=== PATIENT | male | born 1975 | race African-American/Black ===

== ENCOUNTER 2023-05-05 02:42 | Inpatient (IN) | payer OTHER ==
[2023-05-05] MEDS ORDERED: INSULIN REGULAR IN 0.9 % NACL 100 UNITS/100 ML BAG ONE (03:09)
[2023-05-05 03:33] LABS: #Basophils 0.1 thou/uL (0.0-0.2); #Eosinphils 0.2 thou/uL (0.0-0.7); #Monocytes 0.9 thou/uL (0.11-0.59); #Neutrophils 4.2 thou/uL (1.40-6.50); %Basophils 0.8 % (0.0-1.0); %Eosinophils 1.9 % (0.0-10.0); %Lymphocytes 40.1 % (21.0-51.0); %Neutrophils 47.1 % (42.0-75.0); Hematocrit 40.6 % (42.0-52.0); Hemoglobin 13.7 g/dL (14.0-18.0); Mean Corpuscular HGB CONC 33.7 g/dL (32.0-36.0); Mean Corpuscular Hemoglobin 29.9 pg (27.0-31.0); Mean Corpuscular Volume 88.6 fl (78.0-98.0); Mean Platelet Volume 10.1 fL (7.4-10.4); Platelet Count 262 10x3/uL (130-400); RBC Distribution Width 12.8 % (11.5-14.5); Red Blood Cell (RBC) Count 4.58 mill/uL (4.70-6.10); White Blood Cell (WBC) Count 8.8 10x3/uL (4.8-10.8)
[2023-05-05 03:36] LABS: Actual Bicarbonate (HCO3v) 18.7 mEq/L (22-28); Base Excess -5.5 mEq/L (-2.0 to +3.0); Calcium, Ionized (venous) 1.26 mmol/L (1.16-1.32); Chloride (VBG) 108 mmol/L (98-106); Potassium (VBG) 4.18 mmol/L (3.70-5.30); Sodium 146 mmol/L (133-146); pH (venous) 7.367 (7.32-7.43)
[2023-05-05 03:55] LABS: ALT (SGPT) 70 U/L (8-55); AST (SGOT) 50 U/L (5-34); Albumin 4.2 g/dL (3.5-5.0); Alkaline Phosphatase 81 U/L (40-110); Anion Gap 18 mmol/L (10-20); BUN (Urea Nitrogen) 20 mg/dL (8.9-20.6); Bilirubin, Total 0.8 mg/dL (0.2-1.2); Calc. Creatinine Clearance 0 mL/min (70-130); Carbon Dioxide 16 mmol/L (22-29); Chloride 109 mmol/L (98-107); Estimated GFR 52; Globulin 3.9 g/dL (2.4-3.5); Glucose 196 mg/dL (70-105); Potassium 4.6 mmol/L (3.5-5.1); Protein, Total 8.1 g/dL (6.0-8.3); Sodium 138 mmol/L (136-145)
[2023-05-05] MEDS ORDERED: Glucagon 1 MG/ML KIT IM PRN (04:55)
[2023-05-05] MEDS ORDERED: Acetaminophen 325 MG TAB PO PRN (04:55)
[2023-05-05] MEDS ORDERED: Dextrose 50% Abboject 50 ML SYRINGE SLOW IVP PRN ×2 (04:55→14:38)
[2023-05-05] MEDS ORDERED: Ondansetron PF 4 MG/2 ML Vial IVP PRN (04:55)
[2023-05-05] MEDS ORDERED: Ondansetron ODT 4 MG TAB PO PRN (04:55)
[2023-05-05] MEDS ORDERED: Dextrose 5% in Water 1,000 ML IV PRN (04:55)
[2023-05-05] MEDS ORDERED: Calcium Carbonate 500 MG ChewTAB PO PRN (04:55)
[2023-05-05] MEDS ORDERED: Guaifenesin DM 100-10/5 ML UDCUP PO PRN (04:55)
[2023-05-05] MEDS ORDERED: HumaLOG 300 UNITS/3 ML VIAL SC PRN ×2 (05:00→08:26)
[2023-05-05] MEDS: Sodium Chloride 0.9% 1,000 ML IV SCH (06:15)
[2023-05-05 06:18] VITALS: BMI 31.1
[2023-05-05] MEDS: Insulin Glargine 30 UNITS/0.3 ML VIAL SC SCH ×2 (06:26→08:57)
[2023-05-05 07:11] LABS: Hemoglobin A1c 11.9 % (4.0-6.0)
[2023-05-05] MEDS: HumaLOG 300 UNITS/3 ML VIAL SC PRN (07:56)
[2023-05-05] MEDS: Enoxaparin 40 MG (0.4 mL) SYRINGE SC SCH (07:56)
[2023-05-05 08:13] LABS: Anion Gap 23 mmol/L (10-20); BUN (Urea Nitrogen) 21 mg/dL (8.9-20.6); Calc. Creatinine Clearance 86 mL/min (70-130); Calcium 9.8 mg/dL (7.8-10.44); Carbon Dioxide 15 mmol/L (22-29); Chloride 107 mmol/L (98-107); Estimated GFR 50; Glucose 298 mg/dL (70-105); Potassium 4.6 mmol/L (3.5-5.1); Sodium 140 mmol/L (136-145)
[2023-05-05] MEDS: HumaLOG 300 UNITS/3 ML VIAL SC SCH ×2 (08:56→11:32)
[2023-05-05] MEDS: Amlodipine 10 MG TAB PO SCH (08:57)
[2023-05-05] MEDS ORDERED: Insulin Glargine 30 UNITS/0.3 ML VIAL SC SCH (09:00)
[2023-05-05 10:48] LABS: Anion Gap 20 mmol/L (10-20); BUN (Urea Nitrogen) 20 mg/dL (8.9-20.6); Calc. Creatinine Clearance 90 mL/min (70-130); Calcium 9.4 mg/dL (7.8-10.44); Carbon Dioxide 15 mmol/L (22-29); Chloride 106 mmol/L (98-107); Estimated GFR 53; Glucose 382 mg/dL (70-105); Potassium 4.1 mmol/L (3.5-5.1); Sodium 137 mmol/L (136-145)
[2023-05-05 14:21] LABS: Anion Gap 19 mmol/L (10-20); BUN (Urea Nitrogen) 18 mg/dL (8.9-20.6); Calc. Creatinine Clearance 92 mL/min (70-130); Calcium 9.7 mg/dL (7.8-10.44); Carbon Dioxide 14 mmol/L (22-29); Chloride 107 mmol/L (98-107); Estimated GFR 55; Glucose 325 mg/dL (70-105); Potassium 4.1 mmol/L (3.5-5.1); Sodium 136 mmol/L (136-145)
[2023-05-05] MEDS ORDERED: Sodium Chloride 0.9% 1,000 ML IV PRN ×4 (14:38)
[2023-05-05] MEDS ORDERED: Dextrose 5 %-0.45 % NaCl 1,000 ML IV PRN (14:38)
[2023-05-05] MEDS ORDERED: Electrolyte Replacement Protocol IVPB SCH (14:38)
[2023-05-05] MEDS ORDERED: NS 0.9% w/ 20 MEQ KCL 1,000 ML IV PRN ×2 (14:38)
[2023-05-05 20:24] LABS: Calcium 9.4 mg/dL (7.8-10.44); Chloride 106 mmol/L (98-107); Potassium 4.2 mmol/L (3.5-5.1); Sodium 134 mmol/L (136-145)
[2023-05-05 20:25] LABS: Glucose 281 mg/dL (70-105)
[2023-05-05 20:27] LABS: Anion Gap 19 mmol/L (10-20); Carbon Dioxide 12 mmol/L (22-29)
[2023-05-05 20:29] LABS: Calc. Creatinine Clearance 106 mL/min (70-130); Estimated GFR 64
[2023-05-05 20:30] LABS: BUN (Urea Nitrogen) 16 mg/dL (8.9-20.6)
[2023-05-05] MEDS: D5 1/2 NS w/20 mEq KCL 1,000 ML IV PRN (20:44)
[2023-05-05 23:31] LABS: Anion Gap 17 mmol/L (10-20); BUN (Urea Nitrogen) 13 mg/dL (8.9-20.6); Calc. Creatinine Clearance 118 mL/min (70-130); Carbon Dioxide 17 mmol/L (22-29); Chloride 105 mmol/L (98-107); Estimated GFR 73; Glucose 223 mg/dL (70-105); Potassium 3.7 mmol/L (3.5-5.1); Sodium 135 mmol/L (136-145)
[2023-05-06] MEDS: HUMULIN R 100 UNITS in Sodium Chloride 0.9% 100 ML IVPB SCH (00:45)
[2023-05-06 06:06] LABS: Anion Gap 13 mmol/L (10-20); BUN (Urea Nitrogen) 11 mg/dL (8.9-20.6); Calc. Creatinine Clearance 129 mL/min (70-130); Calcium 8.8 mg/dL (7.8-10.44); Carbon Dioxide 21 mmol/L (22-29); Chloride 107 mmol/L (98-107); Estimated GFR 81; Glucose 200 mg/dL (70-105); Potassium 3.2 mmol/L (3.5-5.1); Sodium 138 mmol/L (136-145)
[2023-05-06] MEDS ORDERED: Potassium Chloride 20 MEQ TAB PO SCH (08:00)
[2023-05-06] MEDS: Potassium Chloride 20 MEQ TAB PO SCH (08:57)
[2023-05-06] MEDS: Insulin Glargine 30 UNITS/0.3 ML VIAL SC SCH ×2 (08:58→21:04)
[2023-05-06 11:34] LABS: Anion Gap 18 mmol/L (10-20); BUN (Urea Nitrogen) 10 mg/dL (8.9-20.6); Calc. Creatinine Clearance 130 mL/min (70-130); Calcium 8.8 mg/dL (7.8-10.44); Carbon Dioxide 13 mmol/L (22-29); Chloride 105 mmol/L (98-107); Estimated GFR 77; Glucose 325 mg/dL (70-105); Potassium 4.1 mmol/L (3.5-5.1); Sodium 132 mmol/L (136-145)
[2023-05-06] MEDS: HumaLOG 300 UNITS/3 ML VIAL SC PRN ×2 (12:06→21:05)
[2023-05-06 16:43] LABS: Anion Gap 17 mmol/L (10-20); BUN (Urea Nitrogen) 10 mg/dL (8.9-20.6); Calc. Creatinine Clearance 124 mL/min (70-130); Calcium 9.3 mg/dL (7.8-10.44); Carbon Dioxide 16 mmol/L (22-29); Chloride 103 mmol/L (98-107); Estimated GFR 73; Glucose 331 mg/dL (70-105); Sodium 132 mmol/L (136-145)
[2023-05-06] MEDS ORDERED: Insulin Glargine 30 UNITS/0.3 ML VIAL SC SCH (17:30)
[2023-05-06] MEDS: metFORMIN 500 MG TAB PO SCH (17:32)
[2023-05-06] MEDS: HumaLOG 300 UNITS/3 ML VIAL SC SCH (17:32)
[2023-05-06 19:29] LABS: Anion Gap 14 mmol/L (10-20); BUN (Urea Nitrogen) 11 mg/dL (8.9-20.6); Calc. Creatinine Clearance 119 mL/min (70-130); Calcium 9.4 mg/dL (7.8-10.44); Carbon Dioxide 22 mmol/L (22-29); Chloride 102 mmol/L (98-107); Estimated GFR 69; Glucose 371 mg/dL (70-105); Sodium 134 mmol/L (136-145)
[2023-05-06 23:18] LABS: Anion Gap 16 mmol/L (10-20); BUN (Urea Nitrogen) 10 mg/dL (8.9-20.6); Calc. Creatinine Clearance 122 mL/min (70-130); Calcium 9.4 mg/dL (7.8-10.44); Carbon Dioxide 19 mmol/L (22-29); Chloride 104 mmol/L (98-107); Estimated GFR 71; Glucose 347 mg/dL (70-105); Potassium 4.2 mmol/L (3.5-5.1); Sodium 135 mmol/L (136-145)
[2023-05-07 05:41] LABS: #Eosinphils 0.1 thou/uL (0.0-0.7); #Monocytes 0.6 thou/uL (0.11-0.59); #Neutrophils 2.4 thou/uL (1.40-6.50); %Basophils 0.7 % (0.0-1.0); %Eosinophils 1.8 % (0.0-10.0); %Lymphocytes 47.7 % (21.0-51.0); %Monocytes 9.5 % (0.0-10.0); %Neutrophils 40.3 % (42.0-75.0); Hematocrit 36.4 % (42.0-52.0); Hemoglobin 12.3 g/dL (14.0-18.0); Mean Corpuscular HGB CONC 33.8 g/dL (32.0-36.0); Mean Corpuscular Hemoglobin 29.9 pg (27.0-31.0); Mean Corpuscular Volume 88.3 fl (78.0-98.0); Mean Platelet Volume 10.2 fL (7.4-10.4); Platelet Count 183 10x3/uL (130-400); RBC Distribution Width 12.5 % (11.5-14.5); Red Blood Cell (RBC) Count 4.12 mill/uL (4.70-6.10)
[2023-05-07 06:34] LABS: Anion Gap 11 mmol/L (10-20); BUN (Urea Nitrogen) 9 mg/dL (8.9-20.6); Calc. Creatinine Clearance 154 mL/min (70-130); Calcium 8.9 mg/dL (7.8-10.44); Carbon Dioxide 23 mmol/L (22-29); Chloride 104 mmol/L (98-107); Estimated GFR 95; Glucose 286 mg/dL (70-105); Potassium 3.5 mmol/L (3.5-5.1); Sodium 134 mmol/L (136-145)
[2023-05-07 09:42] LABS: Anion Gap 15 mmol/L (10-20); BUN (Urea Nitrogen) 9 mg/dL (8.9-20.6); Calc. Creatinine Clearance 135 mL/min (70-130); Calcium 9.6 mg/dL (7.8-10.44); Carbon Dioxide 22 mmol/L (22-29); Chloride 102 mmol/L (98-107); Estimated GFR 81; Glucose 343 mg/dL (70-105); Potassium 3.5 mmol/L (3.5-5.1); Sodium 135 mmol/L (136-145)
[2023-05-07] MEDS ORDERED: Insulin Glargine 30 UNITS/0.3 ML VIAL SC SCH ×2 (10:00→21:00)
[2023-05-07] MEDS: Potassium Chloride 20 MEQ TAB PO SCH (11:43)
[2023-05-07] MEDS: Insulin Glargine 30 UNITS/0.3 ML VIAL SC SCH (11:43)
[2023-05-07] MEDS: HumaLOG 300 UNITS/3 ML VIAL SC SCH (13:12)
[2023-05-07 17:06] VITALS: BP 153/96; TEMP 98
[2023-05-07] MEDS ORDERED: Atorvastatin Calcium 40 MG TAB PO SCH (21:00)
[2023-05-08] MEDS ORDERED: Insulin Glargine 30 UNITS/0.3 ML VIAL SC SCH (09:00)
[2023-05-08] MEDS ORDERED: FLU VACC QS2023-24(6MOS UP)/PF 60 MCG/0.5 ML SYRINGE IM ONE (09:00)
== END 2023-05-07 19:20 | disposition home or self-care (01) | DRG 638 ==
LOC: ERS 02:42 → T4-A 04:30 → UNDODISOB 14:16 → IMCU/EMU 15:52 → OBSVTOIN 05-07 08:10 → T4-A 05-07 10:18
PROVIDERS: ADMIT Student in an Organized Health Care Education/Training Program; ATTEND Student in an Organized Health Care Education/Training Program
DX: E11.10 Type 2 diabetes mellitus with ketoacidosis without coma (principal); I16.9 Hypertensive crisis, unspecified; N17.9 Acute kidney failure, unspecified; D64.9 Anemia, unspecified; M10.9 Gout, unspecified; E66.9 Obesity, unspecified; Z68.35 Body mass index [BMI] 35.0-35.9, adult; I10 Essential (primary) hypertension; Z88.0 Allergy status to penicillin; Z79.84 Long term (current) use of oral hypoglycemic drugs; Z79.899 Other long term (current) drug therapy; Z87.891 Personal history of nicotine dependence; Z83.3 Family history of diabetes mellitus; E78.5 Hyperlipidemia, unspecified; Z79.4 Long term (current) use of insulin; R74.01 Elevation of levels of liver transaminase levels
CPT/HCPCS: 36415; 36416; 80048; 80053; 82805; 83036; 85025; 94760; 96372; 99284; G0378; J1650; J1815; J3480; J3490; J7050